=== PATIENT | female | born 1960 | race Caucasian/White ===

== ENCOUNTER 2021-12-25 18:50 | Emergency (ER) | payer SELFPAY ==
--- NOTE | 2021-12-25 19:07 | ED Lower Extremity ---
General Chief Complaint: Lower Extremity Stated Complaint: L LEG PAIN Source: patient, family, american sign language interpreter Exam Limitations: no limitations History of Present Illness Date Seen by Provider: Dec 25, 2021 Time Seen by Provider: 18:53 Initial Comments 61-year-old female with past medical history of diabetes coming in due to left flank pain and left big toe pain as a referral from [facility]. Pains been going on for a couple months but worse over the past couple weeks. No fever, dysuria, hematuria that she knows of. They were told that she potentially has kidney stones because she had a urinalysis with blood in it. She has been taking naproxen and tramadol which does help. She last took it this morning. She is otherwise denying any trauma or any other concerns. Allergies and Home Medications Allergies Coded Allergies: No Known Drug Allergies (Unverified , 12/25/21) Patient Home Medication List Home Medication List Reviewed: Yes Review of Systems Constitutional: No fever EENTM: No blurred vision Respiratory: No cough Cardiovascular: No chest pain Gastrointestinal: No abdominal pain Genitourinary: other (flank pain) Musculoskeletal: joint pain Skin: no symptoms reported Psychiatric/Neurological: No Symptoms Reported All Other Systems Reviewed Negative Unless Noted: Yes Past Pvtiahl-Lhrxqz-Atyfhx Hx Patient Social History Tobacco Use?: No Past Medical History Surgeries: No Physical Exam Vital Signs Vital Signs - First Documented 12/25/21 19:00 Temp 36.3 Pulse 102 Resp 15 B/P (MAP) 154/98 (116) Pulse Ox 97 O2 Delivery Room Air Capillary Refill : Height, Weight, BMI Height: '" Weight: lbs. oz. kg; BMI Method: General Appearance: WD/WN, no apparent distress HEENT: PERRL/EOMI, normal ENT inspection, pharynx normal Neck: non-tender, full range of motion, supple, normal inspection Cardiovascular: regular rate, rhythm, no edema, no murmur Respiratory: chest non-tender, lungs clear, normal breath sounds, no respiratory distress, no accessory muscle use Gastrointestinal: normal bowel sounds, non tender, soft; No distended, No guarding, No rebound Back: normal inspection, no vertebral tenderness, CVA tenderness (L) Hips: bilateral hip non-tender, bilateral hip normal inspection, bilateral hip normal range of motion, bilateral hip no evidence of injury Feet: right foot other (Right big toe painful along the metatarsal phalangeal joint, no significant redness or swelling) Neurologic/Tendon: normal sensation, normal motor functions Neurologic/Psychiatric: no motor/sensory deficits, alert, normal mood/affect Skin: normal color, warm/dry Lymphatic: no adenopathy Progress/Results/Core Measures Results/Orders My Orders Orders - JIAME WHITTINGTON MD Ct Abdomen/Pelvis Wo (12/25/21 19:07) Foot 3 View Left (12/25/21 19:07) Ketorolac Injection (Toradol Injection) (12/25/21 19:15) Oxycodone Immediate Rel Tablet (Oxyir Ta (12/25/21 19:15) Cbc With Automated Diff (12/25/21 20:25) Comprehensive Metabolic Panel (12/25/21 20:25) Ua Culture If Indicated (12/25/21 20:25) Ceftriaxone 1 Gm Pre-Mix (Rocephin 1 Gm (12/25/21 20:30) Medications Given in ED Current Medications Medications Dose Ordered Sig/Sudhir Route Start Time Stop Time Status Last Admin Dose Admin Ketorolac Tromethamine 15 mg ONCE ONCE IM 12/25/21 19:15 12/25/21 19:16 DC 12/25/21 19:13 15 MG Oxycodone HCl 5 mg ONCE ONCE PO 12/25/21 19:15 12/25/21 19:16 DC 12/25/21 19:13 5 MG Vital Signs/I&O 12/25/21 19:00 Temp 36.3 Pulse 102 Resp 15 B/P (MAP) 154/98 (116) Pulse Ox 97 O2 Delivery Room Air Progress Progress Note : Progress Note 61-year-old female with above history coming in due to left flank pain and left big toe pain. ABCs were intact and vitals were stable on presentation. Left big toe does have some pain with movement but there is no redness or swelling. I suspect this is gout forming. X-ray obtained and is negative for any acute abnormalities. Left flank tenderness raises suspicion for ureterolithiasis given she did bring her lab work from the clinic today and her urinalysis did have blood in it. No signs of infection in it. Creatinine was normal then and white blood cell count was normal as well. CT abdomen pelvis ordered to assess for this. She was given Toradol as well as an oxycodone for pain. CT concerning for multiple kidney stones and one in the ureter. There is gas concerning for infection behind this. The patient was then given ceftriaxone. Unfortunately we do not have a urologist on-call. I called [facility] [place] They have limited availability with other hospitals but they do have ability to take her at [facility]. The patient was accepted there for transfer. Patient would prefer to go private vehicle, her vitals have been stable and it is roughly an hour away so I believe this is a reasonable choice. Diagnostic Imaging Diagonstic Imaging: Xray (left foot), CT (abd/pelvis) Comments [facility], [place] NAME: RICHMOND WANG MED REC#: [id number] PT STATUS: REG ER : 1960 PHYSICIAN: JAIME WHITTINGTON MD ADMIT DATE: 12/25/21/ER FS Draft Date of Exam:12/25/21 FOOT 3 VIEW LEFT INDICATION: left big toe pain COMPARISON: None. FINDINGS: 3 views of the left foot demonstrate no acute fracture or dislocation. There are no focal osseous lesions. There is no soft tissue swelling. Joint spaces are well maintained. No radiopaque foreign bodies are seen. IMPRESSION: No acute fractures or dislocations of the left foot. Dictated on workstation # [id number] Dict: 12/25/211952 Trans: 12/25/211956 DENISE [id number] Interpreted by: PARISH ROSS MD Electronically signed by: NAME: RICHMOND WANG [facility] REC#: [id number] PT STATUS: REG ER : 1960 PHYSICIAN: JAIME WHITTINGTON MD ADMIT DATE: 12/25/21/ER FS Draft Date of Exam:12/25/21 CT ABDOMEN/PELVIS WO PROCEDURE: CT abdomen and pelvis without contrast. TECHNIQUE: Multiple contiguous axial images were obtained through the abdomen and pelvis without the use of intravenous contrast. Auto Exposure Controls were utilized during the CT exam to meet ALARA standards for radiation dose reduction. INDICATION: Left flank pain. Hematuria. COMPARISON: None FINDINGS: Included portions of the lung bases show mild dependent atelectasis and respiratory motion artifact. CT ABDOMEN: Large amount of air and stool is present scattered throughout the colon. Normal appendix is identified. Small bowel loops are nondistended. A 1.6 x 1 cm calculus is identified within the left renal pelvis. There is moderate stranding of the peripelvic fat. Gas is also present within the left renal pelvis as well as within several calyces, as is an additional nonobstructive calculus within the inferior pole. No renal calculi are seen on the right. Urinary bladder is unopacified and mildly distended. No calculi are seen within the urinary bladder. There is a mild amount of gas within the non-gravity dependent portion of the lumen of the urinary bladder, as well. The adrenal glands, spleen, pancreas, and liver have an unremarkable noncontrast CT appearance. There is no loculated fluid collection, free fluid or free air within the abdomen. No abnormal mesenteric or retroperitoneal adenopathy is identified. Osseous structures show no acute abnormalities. CT PELVIS: Again, there is air within the lumen of the urinary bladder. Fat density lesion is noted associated with the left ovary. There is a punctate calcification, as well. Area in question measures 9 mm and may be on the basis of a small mature teratoma. There is no loculated fluid collection, free fluid or free air within the pelvis. No abnormal lymph nodes are seen. Osseous structures show no acute abnormalities. IMPRESSION: 1. Large stone within the left renal pelvis. There is associated gas within the calyces and pelvis of the left kidney, as well as the urinary bladder. There is also moderate stranding of the peripelvic fat. Findings are concerning for obstruction with gas forming UTI. 2. Additional nonobstructive calculus is also seen within the inferior pole of the left kidney. 3. Large amount of colonic air and stool. Please correlate for constipation. 4. 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 Dictated on workstation # [id number] Dict: 12/25/212003 Trans: 12/25/212015 [facility] [id number] Interpreted by: PARISH ROSS MD Electronically signed by: Departure Impression Primary Impression: Ureterolithiasis Disposition: 02 XFER SHT-TRM HOSP Condition: Stable Transfer Transfer Reason: Exceeds level of care Time Spoke to Accepting Phy: 20:30 Transfer Progress Notes We do not have urology coverage at this time. Patient prefers to go to the area which would be easier for her. Called [facility] and they have limited availability, but [facility] can accept her. Discussed the case with Rei Parry who accepted the patient on behalf of Dr. Wilson at 20:30. Awaiting bed placement for transfer at this time. Transfer Facility: [facility] Method of Transfer: Private Vehicle Departure-Patient Inst. Referrals: NO,LOCAL PHYSICIAN (PCP/Family) Primary Care Physician JAIME WHITTINGTON MD Dec 25, 2021 19:07
[2021-12-25] MEDS ORDERED: KETOROLAC 30 MG/ML VIAL IM ONE (19:15)
--- NOTE | 2021-12-25 19:58 | Diagnostic Imaging Report ---
INDICATION: left big toe pain COMPARISON: None. FINDINGS: 3 views of the left foot demonstrate no acute fracture or dislocation. There are no focal osseous lesions. There is no soft tissue swelling. Joint spaces are well maintained. No radiopaque foreign bodies are seen. IMPRESSION: No acute fractures or dislocations of the left foot. Dictated by: Dictated on workstation # [id number]
[2021-12-25] MEDS ORDERED: ACHD5005 PO (20:09)
[2021-12-25] MEDS ORDERED: TMSL.4C PO (20:15)
--- NOTE | 2021-12-25 20:18 | Diagnostic Imaging Report ---
PROCEDURE: CT abdomen and pelvis without contrast. TECHNIQUE: Multiple contiguous axial images were obtained through the abdomen and pelvis without the use of intravenous contrast. Auto Exposure Controls were utilized during the CT exam to meet ALARA standards for radiation dose reduction. INDICATION: Left flank pain. Hematuria. COMPARISON: None FINDINGS: Included portions of the lung bases show mild dependent atelectasis and respiratory motion artifact. CT ABDOMEN: Large amount of air and stool is present scattered throughout the colon. Normal appendix is identified. Small bowel loops are nondistended. A 1.6 x 1 cm calculus is identified within the left renal pelvis. There is moderate stranding of the peripelvic fat. Gas is also present within the left renal pelvis as well as within several calyces, as is an additional nonobstructive calculus within the inferior pole. No renal calculi are seen on the right. Urinary bladder is unopacified and mildly distended. No calculi are seen within the urinary bladder. There is a mild amount of gas within the non-gravity dependent portion of the lumen of the urinary bladder, as well. The adrenal glands, spleen, pancreas, and liver have an unremarkable noncontrast CT appearance. There is no loculated fluid collection, free fluid or free air within the abdomen. No abnormal mesenteric or retroperitoneal adenopathy is identified. Osseous structures show no acute abnormalities. CT PELVIS: Again, there is air within the lumen of the urinary bladder. Fat density lesion is noted associated with the left ovary. There is a punctate calcification, as well. Area in question measures 9 mm and may be on the basis of a small mature teratoma. There is no loculated fluid collection, free fluid or free air within the pelvis. No abnormal lymph nodes are seen. Osseous structures show no acute abnormalities. IMPRESSION: 1. Large stone within the left renal pelvis. There is associated gas within the calyces and pelvis of the left kidney, as well as the urinary bladder. There is also moderate stranding of the peripelvic fat. Findings are concerning for obstruction with gas forming UTI. 2. Additional nonobstructive calculus is also seen within the inferior pole of the left kidney. 3. Large amount of colonic air and stool. Please correlate for constipation. 4. 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 Dictated by: Dictated on workstation # [id number]
[2021-12-25] MEDS ORDERED: cefTRIAXone 1 GM PRE-MIX 50 ML IV ONE (20:30)
[2021-12-25 20:42] LABS: BASOPHILS % (AUTO) 1 % (0-10); EOSINOPHILS # (AUTO) 0.1 10^3/uL (0.0-0.3); EOSINOPHILS % (AUTO) 1 % (0-10); HEMATOCRIT 43 % (35-52); HEMOGLOBIN 14.8 g/dL (11.5-16.0); LYMPHOCYTES # (AUTO) 2.3 10^3/uL (1.0-4.0); LYMPHOCYTES % (AUTO) 35 % (12-44); MEAN CORPUSCULAR HEMOGLOBIN 29 pg (25-34); MEAN CORPUSCULAR HGB CONC 34 g/dL (32-36); MEAN CORPUSCULAR VOLUME 83 fL (80-99); MEAN PLATELET VOLUME 11.7 fL (9.0-12.2); MONOCYTES # (AUTO) 0.5 10^3/uL (0.0-1.0); MONOCYTES % (AUTO) 8 % (0-12); NEUTROPHILS # (AUTO) 3.7 10^3/uL (1.8-7.8); NEUTROPHILS % (AUTO) 55 % (42-75); PLATELET COUNT 206 10^3/uL (130-400); WHITE BLOOD COUNT 6.6 10^3/uL (4.3-11.0)
[2021-12-25 20:58] LABS: BILIRUBIN,TOTAL 0.3 MG/DL (0.1-1.0); CALCIUM 9.8 MG/DL (8.5-10.1); CREATININE SERUM 0.51 MG/DL (0.60-1.30); POTASSIUM 4.3 MMOL/L (3.6-5.0); TOTAL PROTEIN 7.1 GM/DL (6.4-8.2)
[2021-12-25 20:59] LABS: ALBUMIN 4.4 GM/DL (3.2-4.5)
[2021-12-25 21:07] VITALS: BP 145/92
== END 2021-12-25 21:07 | disposition short-term general hospital (02) ==
LOC: ER FS 18:53
DX: N20.2 Calculus of kidney with calculus of ureter (principal)
CPT/HCPCS: 36415; 73630; 74176; 80053; 85025